=== PATIENT | female | born 1945 | race African-American/Black ===

== ENCOUNTER 2020-10-24 08:13 | Inpatient (IN) | payer MEDICARE, OTHER ==
[~2020-10-24] VITALS: Ht 152.4 cm; Wt 83.1 kg
[2020-10-24] MEDS ORDERED: PIPERACILLIN/TAZOBACTAM 3.375 GM in SODIUM CHLORIDE 0.9% 50ML 50 ML IV ONE (08:45)
[2020-10-24] MEDS ORDERED: ACETAMINOPHEN 325 MG TAB ONE (09:53)
[2020-10-24 09:57] LABS: CLARITY,URINE CLOUDY (CLEAR); COLOR,URINE YELLOW (YELLOW); LEUKOCYTE ESTERASE ,URINE LARGE (NEGATIVE); NITRITE,URINE NEGATIVE (NEGATIVE)
[2020-10-24 09:58] LABS: KETONES,URINE NEGATIVE (NEGATIVE); PROTEIN,URINE DIPSTICK >=300 (NEGATIVE); URINE UROBILINOGEN 0.2 mg/dL (0.2 - 1)
[2020-10-24] MEDS: DEXAMETHASONE SOD PHOS 10 MG/1 ML VIAL IV SCH (10:15)
[2020-10-24] MEDS: ASCORBIC ACID 500 MG TAB PO SCH ×2 (10:15→17:24)
[2020-10-24] MEDS: ZINC SULFATE 50 MG CAP PO SCH (10:15)
[2020-10-24 10:22] LABS: BACTERIA,URINE RARE /HPF; EPITHELIAL CELLS,URINE FEW /LPF; RBC,URINE 21-50 /HPF (0-5); WBC,URINE (MAN) 21-50 /HPF (0-5)
[2020-10-24 10:52] LABS: BASOPHILS % 0.2 % (0.0-1.0); HEMATOCRIT 25.8 % (34.2-44.1); LYMPHOCYTES # (AUTO) 0.5 (1.0-3.2); LYMPHOCYTES % 4.3 % (18.0-39.1); MEAN CORPUSCULAR HEMOGLOBIN 31.1 pg (28-32); MEAN CORPUSCULAR VOLUME 100.4 fL (81-99); MONOCYTES # (AUTO) 0.4 (0.2-0.8); MONOCYTES % 3.1 % (4.4-11.3); NEUTROPHILS # (AUTO) 10.6 (2.1-6.9); NEUTROPHILS % 91.8 % (38.7-80.0); PLATELET COUNT 190 x10e3/uL (140-360); RED BLOOD COUNT 2.57 x10e6/uL (3.6-5.1)
[2020-10-24] MEDS ORDERED: ACETAMINOPHEN 325 MG TAB PO ONE (11:00)
[2020-10-24 11:05] LABS: PARTIAL THROMBOPLASTIN TIME 40.3 seconds (23.8-35.5)
[2020-10-24 11:10] LABS: ALBUMIN 2.1 g/dL (3.5-5.0); ALBUMIN/GLOBULIN RATIO 0.4 (0.8-2.0); ANION GAP 20.4 mmol/L (8-16); CALCIUM 8.5 mg/dL (8.4-10.2); CREATININE, SERUM 3.69 mg/dL (0.57-1.11); MAGNESIUM 1.7 MG/DL (1.3-2.1); POTASSIUM 4.4 mmol/L (3.5-5.1)
[2020-10-24 11:17] LABS: CREATINE KINASE MB 0.9 ng/mL (0-5.0)
[2020-10-24 11:29] LABS: INR 1.23; PROTHROMBIN TIME 15.8 seconds (11.9-14.5)
[2020-10-24 15:00] VITALS: BP 111/57
[2020-10-24 16:00] VITALS: BP 111/57
[2020-10-24 16:11] VITALS: BP 111/57
[2020-10-24] MEDS ORDERED: POLYETHYLENE GLYCOL 3350 17 GM PACK PO PRN (16:30)
[2020-10-24] MEDS ORDERED: HYDRALAZINE HCL 20 MG/ML VIAL IV PRN (16:30)
[2020-10-24 17:08] LABS: CREATINE KINASE MB 1.6 ng/mL (0-5.0)
[2020-10-24] MEDS: DOCUSATE SODIUM 100 MG CAP PO SCH (17:24)
[2020-10-24] MEDS: FAMOTIDINE 20 MG/2 ML VIAL IV SCH (17:24)
[2020-10-24] MEDS ORDERED: REMDESIVIR 200MG 200 MG in SODIUM CHLORIDE 0.9% 100 ML IV ONE (18:00)
[2020-10-24] MEDS ORDERED: DEXTROSE 50% SYRINGE 50 ML IV PRN (19:45)
[2020-10-24 20:00] VITALS: BP 133/47
[2020-10-24 21:00] VITALS: BP 133/47
[2020-10-24] MEDS ORDERED: INSULIN REGULAR, HUMAN 100 UNIT/1 ML SQ SCH (21:00)
[2020-10-24] MEDS ORDERED: CEFEPIME 1 GM in SODIUM CHLORIDE 0.9% 50ML 50 ML IV SCH (21:00)
[2020-10-24] MEDS ORDERED: TRAMADOL HCL 50 MG TAB PO PRN (22:15)
[2020-10-25] VITALS (7 sets, daily range): BP systolic 108–134; BP diastolic 41–58
[2020-10-25] MEDS ORDERED: FOLIC ACID0.4 MG PO (04:31)
[2020-10-25] MEDS ORDERED: NEURONTIN300 MG PO (04:33)
[2020-10-25] MEDS ORDERED: GUAIFENESI100 MG/5 M PO (04:34)
[2020-10-25] MEDS ORDERED: METAMUCIL FIBE3.4 GM PO (05:34)
[2020-10-25] MEDS ORDERED: TRAVATAN Z5 ML OP (06:14)
[2020-10-25] MEDS ORDERED: DIPHENHYDRAMINE25 MG PO (06:14)
[2020-10-25] MEDS ORDERED: NIFEDIPINE ER30 M1 PO (06:14)
[2020-10-25] MEDS ORDERED: ATENOLOL50 MG PO (06:14)
[2020-10-25] MEDS ORDERED: ERGOCAL62.5 MCG (06:14)
[2020-10-25] MEDS ORDERED: HUMALOG MI100 UNIT/2 SQ (06:14)
[2020-10-25] MEDS ORDERED: MICARDIS40 MG PO (06:14)
[2020-10-25] MEDS ORDERED: PRECOSE50 MG PO (06:14)
[2020-10-25] MEDS ORDERED: CALCIUM CARBON500 MG PO (06:14)
[2020-10-25] MEDS ORDERED: ZOFRAN4 MG PO (06:14)
[2020-10-25] MEDS ORDERED: COLACE100 MG PO (06:14)
[2020-10-25] MEDS ORDERED: DOXYCYCLINE HY100 MG PO (06:14)
[2020-10-25] MEDS ORDERED: ATORVASTATIN CA20 MG PO (06:14)
[2020-10-25] MEDS ORDERED: BIKTARVY 50-201 EACH (06:14)
[2020-10-25] MEDS ORDERED: ACETAMINOPHEN/1 EAC1 PO (06:14)
[2020-10-25 06:51] LABS: CHOL/HDL RATIO 7.1 (3.0-3.6)
[2020-10-25 07:10] LABS: THYROID STIMULATING HORMONE 0.362 uIU/mL (0.350-4.940)
[2020-10-25 07:35] LABS: BASOPHILS % 0.1 % (0.0-1.0); HEMATOCRIT 24.5 % (34.2-44.1); HEMOGLOBIN 8.1 g/dL (12.0-16.0); LYMPHOCYTES # (AUTO) 0.9 (1.0-3.2); LYMPHOCYTES % 8.4 % (18.0-39.1); MEAN CORPUSCULAR HEMOGLOBIN 31.6 pg (28-32); MEAN CORPUSCULAR HGB CONC 33.1 g/dL (31-35); MEAN CORPUSCULAR VOLUME 95.7 fL (81-99); MONOCYTES # (AUTO) 0.4 (0.2-0.8); MONOCYTES % 3.8 % (4.4-11.3); NEUTROPHILS # (AUTO) 9.3 (2.1-6.9); NEUTROPHILS % 87.1 % (38.7-80.0); PLATELET COUNT 208 x10e3/uL (140-360); RED BLOOD COUNT 2.56 x10e6/uL (3.6-5.1); RED CELL DISTRIBUTION WIDTH 13.7 % (11.7-14.4)
[2020-10-25 08:15] LABS: ALBUMIN 1.9 g/dL (3.5-5.0); ALBUMIN/GLOBULIN RATIO 0.3 (0.8-2.0); ANION GAP 20.6 mmol/L (8-16); CALCIUM 8.3 mg/dL (8.4-10.2); CREATININE, SERUM 3.8 mg/dL (0.57-1.11); POTASSIUM 4.6 mmol/L (3.5-5.1)
[2020-10-25] MEDS: DEXAMETHASONE SOD PHOS 10 MG/1 ML VIAL IV SCH (09:18)
[2020-10-25] MEDS: HYDROCODONE/APAP 5MG-325MG TAB PO PRN ×2 (09:19→21:06)
[2020-10-25] MEDS: ZINC SULFATE 50 MG CAP PO SCH (09:19)
[2020-10-25] MEDS: ASCORBIC ACID 500 MG TAB PO SCH ×2 (09:19→16:56)
[2020-10-25] MEDS: FAMOTIDINE 20 MG/2 ML VIAL IV SCH ×2 (09:19→16:56)
[2020-10-25] MEDS: DOCUSATE SODIUM 100 MG CAP PO SCH ×2 (09:19→16:56)
[2020-10-25 09:36] LABS: CREATINE KINASE MB 2.2 ng/mL (0-5.0)
[2020-10-25] MEDS: INSULIN REGULAR, HUMAN 100 UNIT/1 ML SQ SCH ×4 (09:47→21:43)
[2020-10-25] MEDS ORDERED: INSULIN GLARGINE 100 UNITS/ML VIAL SQ STA (09:59)
[2020-10-25] MEDS ORDERED: LANTUS 3ML100 UNITS/ (10:00)
[2020-10-25] MEDS ORDERED: DIPHENHYDRAMINE HCL 25 MG CAP PO PRN (10:00)
[2020-10-25] MEDS ORDERED: LACTULOSE20 GM/30 M PO (10:02)
[2020-10-25] MEDS ORDERED: Vancomycin IV 1 GM in SODIUM CHLORIDE 0.9% 250ML 250 ML IV ONE (10:30)
[2020-10-25] MEDS ORDERED: METAMUCIL0.4 GM (11:07)
[2020-10-25] MEDS ORDERED: MAALOX MAXIMUM355 ML PO (11:09)
[2020-10-25] MEDS ORDERED: EPOETIN ALFA-EPBX 10,000 UNIT/ML VIAL SC SCH (12:00)
[2020-10-25] MEDS: ACETAMINOPHEN 325 MG TAB PO PRN (12:10)
[2020-10-25] MEDS: SODIUM BICARBONATE 650 MG TAB PO SCH (13:39)
[2020-10-25] MEDS: REMDESIVIR 100MG 100 MG in SODIUM CHLORIDE 0.9% 100 ML IV SCH (13:39)
[2020-10-25 15:05] LABS: CREATINE KINASE MB 2.6 ng/mL (0-5.0)
[2020-10-25] MEDS: ENOXAPARIN SOD INJ 40 MG/0.4 ML SYR SC SCH (16:57)
[2020-10-25] MEDS ORDERED: ACARBOSE 50 MG PO PRN (20:00)
[2020-10-25] MEDS ORDERED: MAGNESIUM/ALUMINUM/SIMETHICONE 30 ML UDC PO PRN (20:00)
[2020-10-25] MEDS: ATORVASTATIN 40 MG TAB PO SCH (21:07)
[2020-10-25] MEDS: ACETAMINOPHEN/CODEINE 300MG - 30MG TAB PO PRN (23:18)
[2020-10-26] VITALS: BP 110/46
[2020-10-26 04:00] VITALS: BP 118/47
[2020-10-26 08:00] VITALS: BP 116/56
[2020-10-26] MEDS: INS LISP PRO/LISP HUMAN 75/25 100 UNITS/ML VIAL SC SCH ×3 (09:00→17:54)
[2020-10-26] MEDS: [UNRECOGNIZED DRUG - OTHER] PO SCH (09:00)
[2020-10-26] MEDS ORDERED: CEFEPIME 1 GM in SODIUM CHLORIDE 0.9% 50ML 50 ML IV SCH (09:00)
[2020-10-26] MEDS: PSYLLIUM 6GM PACKET PO SCH (09:36)
[2020-10-26] MEDS: FAMOTIDINE 20 MG/2 ML VIAL IV SCH ×2 (09:36→16:37)
[2020-10-26] MEDS: DIPHENHYDRAMINE HCL 25 MG CAP PO SCH (09:36)
[2020-10-26] MEDS: DOCUSATE SODIUM 100 MG CAP PO SCH ×2 (09:36→09:37)
[2020-10-26] MEDS: FOLIC ACID 1 MG TAB PO SCH (09:37)
[2020-10-26] MEDS: LACTULOSE SYRUP 20 GM/30 ML UDC PO SCH ×2 (09:37→16:37)
[2020-10-26] MEDS: GABAPENTIN 300 MG CAP PO SCH (09:38)
[2020-10-26] MEDS: GUAIFENESIN 200 MG/10 ML UDC PO SCH (09:39)
[2020-10-26] MEDS: SODIUM BICARBONATE 650 MG TAB PO SCH (09:39)
[2020-10-26] MEDS: OYST-CAL-D 500MG TABLET PO SCH (09:39)
[2020-10-26] MEDS: ZINC SULFATE 50 MG CAP PO SCH (09:40)
[2020-10-26] MEDS: ASCORBIC ACID 500 MG TAB PO SCH ×2 (09:40→16:37)
[2020-10-26 10:22] LABS: CLARITY,URINE CLOUDY (CLEAR); COLOR,URINE YELLOW (YELLOW)
[2020-10-26 10:23] LABS: KETONES,URINE NEGATIVE (NEGATIVE); LEUKOCYTE ESTERASE ,URINE TRACE (NEGATIVE); NITRITE,URINE NEGATIVE (NEGATIVE); PROTEIN,URINE DIPSTICK >=300 (NEGATIVE); URINE UROBILINOGEN 0.2 mg/dL (0.2 - 1)
[2020-10-26] MEDS: INSULIN GLARGINE 100 UNITS/ML VIAL SC SCH ×2 (10:35→17:57)
[2020-10-26] MEDS: ATENOLOL 50 MG TAB PO SCH (10:37)
[2020-10-26] MEDS: TELMISARTAN 40 MG TAB PO SCH (10:37)
[2020-10-26] MEDS: NIFEDIPINE CR 30 MG TAB PO SCH (10:37)
[2020-10-26] MEDS: DEXAMETHASONE SOD PHOS 10 MG/1 ML VIAL IV SCH (10:37)
[2020-10-26] MEDS: INSULIN REGULAR, HUMAN 100 UNIT/1 ML SQ SCH ×4 (11:13→21:00)
[2020-10-26 11:18] LABS: BACTERIA,URINE MANY /HPF; EPITHELIAL CELLS,URINE FEW /LPF; RBC,URINE >50 /HPF (0-5); WBC,URINE (MAN) >50 /HPF (0-5)
[2020-10-26 11:36] LABS: BASOPHILS % 0.2 % (0.0-1.0); EOSINOPHILS % 0.2 % (0.0-6.0); HEMATOCRIT 25.9 % (34.2-44.1); HEMOGLOBIN 8.7 g/dL (12.0-16.0); LYMPHOCYTES # (AUTO) 0.7 (1.0-3.2); LYMPHOCYTES % 3.4 % (18.0-39.1); MEAN CORPUSCULAR HGB CONC 33.6 g/dL (31-35); MEAN CORPUSCULAR VOLUME 92.2 fL (81-99); MONOCYTES # (AUTO) 0.6 (0.2-0.8); MONOCYTES % 2.9 % (4.4-11.3); NEUTROPHILS # (AUTO) 17.5 (2.1-6.9); PLATELET COUNT 305 x10e3/uL (140-360); RED BLOOD COUNT 2.81 x10e6/uL (3.6-5.1); RED CELL DISTRIBUTION WIDTH 13.6 % (11.7-14.4)
[2020-10-26] MEDS: CHOLECALCIFEROL 1,000 UNIT TAB PO SCH (11:51)
[2020-10-26 12:22] LABS: FERRITIN 1269.99 ng/mL (4.63-204.00)
[2020-10-26 12:27] LABS: ALBUMIN 1.9 g/dL (3.5-5.0); ALBUMIN/GLOBULIN RATIO 0.3 (0.8-2.0); ANION GAP 19.6 mmol/L (8-16); CALCIUM 8.1 mg/dL (8.4-10.2); CREATININE, SERUM 3.35 mg/dL (0.57-1.11); POTASSIUM 3.6 mmol/L (3.5-5.1)
[2020-10-26 13:15] VITALS: BP 108/47
[2020-10-26] MEDS: LEVOFLOXACIN 500MG/D5W 100ML 100 ML IV SCH (13:32)
[2020-10-26] MEDS: HYDROMORPHONE 1MG/1ML INJ IV PRN (13:53)
[2020-10-26 16:00] VITALS: BP 182/146
[2020-10-26] MEDS: REMDESIVIR 100MG 100 MG in SODIUM CHLORIDE 0.9% 100 ML IV SCH (16:37)
[2020-10-26] MEDS: ENOXAPARIN SOD INJ 40 MG/0.4 ML SYR SC SCH (16:37)
[2020-10-26 20:00] VITALS: BP 161/116
[2020-10-26] MEDS: DEXMEDETOMIDINE 400MCG/NS100ML 100 ML IV PRN (20:25)
[2020-10-26] MEDS: ATORVASTATIN 40 MG TAB PO SCH (21:00)
[2020-10-26] MEDS: TRAVOPROST(OPTH) 2.5 ML BTL OP SCH ×2 (22:21→22:23)
[2020-10-26] MEDS ORDERED: SODIUM CHLORIDE 0.9% 250ML 250 ML ONE (23:44)
[2020-10-27] VITALS (23 sets, daily range): BP systolic 82–154; BP diastolic 40–92
[2020-10-27] MEDS ORDERED: SODIUM CHLORIDE 0.9% 1000ML 1,000 ML ONE (00:28)
[2020-10-27] MEDS: NOREPINEPHRINE 8 MG/D5W 250 ML 250 ML IV SCH (03:20)
[2020-10-27 06:57] LABS: BASOPHILS % 0.1 % (0.0-1.0); HEMOGLOBIN 7.5 g/dL (12.0-16.0); LYMPHOCYTES # (AUTO) 0.6 (1.0-3.2); LYMPHOCYTES % 3.4 % (18.0-39.1); MEAN CORPUSCULAR HEMOGLOBIN 32.2 pg (28-32); MEAN CORPUSCULAR HGB CONC 35.4 g/dL (31-35); MONOCYTES # (AUTO) 0.6 (0.2-0.8); MONOCYTES % 3.5 % (4.4-11.3); NEUTROPHILS # (AUTO) 14.6 (2.1-6.9); PLATELET COUNT 254 x10e3/uL (140-360); RED BLOOD COUNT 2.33 x10e6/uL (3.6-5.1)
[2020-10-27 07:06] LABS: ANION GAP 17.8 mmol/L (8-16); CALCIUM 7.7 mg/dL (8.4-10.2); CREATININE, SERUM 4.04 mg/dL (0.57-1.11); POTASSIUM 3.8 mmol/L (3.5-5.1)
[2020-10-27] MEDS: INS LISP PRO/LISP HUMAN 75/25 100 UNITS/ML VIAL SC SCH ×3 (07:19→16:30)
[2020-10-27] MEDS: INSULIN REGULAR, HUMAN 100 UNIT/1 ML SQ SCH ×4 (07:20→22:45)
[2020-10-27 07:27] LABS: HEMATOCRIT 21.2 % (34.2-44.1)
[2020-10-27] MEDS: GUAIFENESIN 200 MG/10 ML UDC PO SCH (09:00)
[2020-10-27] MEDS: LACTULOSE SYRUP 20 GM/30 ML UDC PO SCH ×2 (09:00→17:00)
[2020-10-27] MEDS: GABAPENTIN 300 MG CAP PO SCH (09:00)
[2020-10-27] MEDS: DIPHENHYDRAMINE HCL 25 MG CAP PO SCH (09:00)
[2020-10-27] MEDS: ASCORBIC ACID 500 MG TAB PO SCH ×2 (09:00→17:00)
[2020-10-27] MEDS: OYST-CAL-D 500MG TABLET PO SCH (09:00)
[2020-10-27] MEDS: [UNRECOGNIZED DRUG - OTHER] PO SCH (09:00)
[2020-10-27] MEDS: CHOLECALCIFEROL 1,000 UNIT TAB PO SCH (09:00)
[2020-10-27] MEDS: TELMISARTAN 40 MG TAB PO SCH (09:00)
[2020-10-27] MEDS: INSULIN GLARGINE 100 UNITS/ML VIAL SC SCH ×2 (09:00→17:00)
[2020-10-27] MEDS: NIFEDIPINE CR 30 MG TAB PO SCH (09:00)
[2020-10-27] MEDS: FOLIC ACID 1 MG TAB PO SCH (09:00)
[2020-10-27] MEDS: SODIUM BICARBONATE 650 MG TAB PO SCH (09:00)
[2020-10-27] MEDS: PSYLLIUM 6GM PACKET PO SCH (09:00)
[2020-10-27] MEDS: ATENOLOL 50 MG TAB PO SCH (09:00)
[2020-10-27] MEDS: DOCUSATE SODIUM 100 MG CAP PO SCH (09:00)
[2020-10-27] MEDS: ZINC SULFATE 50 MG CAP PO SCH (09:00)
[2020-10-27] MEDS: DEXAMETHASONE SOD PHOS 10 MG/1 ML VIAL IV SCH (10:03)
[2020-10-27] MEDS: FAMOTIDINE 20 MG/2 ML VIAL IV SCH ×2 (10:03→17:50)
[2020-10-27] MEDS: REMDESIVIR 100MG 100 MG in SODIUM CHLORIDE 0.9% 100 ML IV SCH (16:25)
[2020-10-27] MEDS: ENOXAPARIN SOD INJ 40 MG/0.4 ML SYR SC SCH (17:50)
[2020-10-27] MEDS: ATORVASTATIN 40 MG TAB PO SCH (21:00)
[2020-10-27] MEDS: TRAVOPROST(OPTH) 2.5 ML BTL OP SCH (21:00)
[2020-10-28] VITALS (25 sets, daily range): BP systolic 102–157; BP diastolic 42–88
[2020-10-28] MEDS: NOREPINEPHRINE 8 MG/D5W 250 ML 250 ML IV SCH (01:30)
[2020-10-28 05:39] LABS: BASOPHILS % 0.1 % (0.0-1.0); HEMATOCRIT 21.4 % (34.2-44.1); HEMOGLOBIN 7.6 g/dL (12.0-16.0); LYMPHOCYTES # (AUTO) 0.7 (1.0-3.2); LYMPHOCYTES % 5.9 % (18.0-39.1); MEAN CORPUSCULAR HEMOGLOBIN 32.2 pg (28-32); MEAN CORPUSCULAR HGB CONC 35.5 g/dL (31-35); MEAN CORPUSCULAR VOLUME 90.7 fL (81-99); MONOCYTES # (AUTO) 0.4 (0.2-0.8); MONOCYTES % 3.2 % (4.4-11.3); NEUTROPHILS # (AUTO) 10.1 (2.1-6.9); NEUTROPHILS % 89.9 % (38.7-80.0); PLATELET COUNT 250 x10e3/uL (140-360); RED BLOOD COUNT 2.36 x10e6/uL (3.6-5.1); RED CELL DISTRIBUTION WIDTH 14.1 % (11.7-14.4)
[2020-10-28 06:01] LABS: ALBUMIN 1.6 g/dL (3.5-5.0); ALBUMIN/GLOBULIN RATIO 0.3 (0.8-2.0); CALCIUM 7.6 mg/dL (8.4-10.2); CREATININE, SERUM 4.03 mg/dL (0.57-1.11)
[2020-10-28] MEDS: INSULIN REGULAR, HUMAN 100 UNIT/1 ML SQ SCH ×4 (07:30→20:28)
[2020-10-28] MEDS: FAMOTIDINE 20 MG/2 ML VIAL IV SCH ×2 (08:29→17:49)
[2020-10-28] MEDS: DOCUSATE SODIUM 100 MG CAP PO SCH (08:29)
[2020-10-28] MEDS: PSYLLIUM 6GM PACKET PO SCH (08:29)
[2020-10-28] MEDS: DIPHENHYDRAMINE HCL 25 MG CAP PO SCH (08:29)
[2020-10-28] MEDS: FOLIC ACID 1 MG TAB PO SCH (08:29)
[2020-10-28] MEDS: DEXAMETHASONE SOD PHOS 10 MG/1 ML VIAL IV SCH (08:29)
[2020-10-28] MEDS: LACTULOSE SYRUP 20 GM/30 ML UDC PO SCH ×2 (08:29→17:00)
[2020-10-28] MEDS: OYST-CAL-D 500MG TABLET PO SCH (08:30)
[2020-10-28] MEDS: GABAPENTIN 300 MG CAP PO SCH (08:30)
[2020-10-28] MEDS: TELMISARTAN 40 MG TAB PO SCH (08:30)
[2020-10-28] MEDS: ZINC SULFATE 50 MG CAP PO SCH (08:31)
[2020-10-28] MEDS: NIFEDIPINE CR 30 MG TAB PO SCH (08:31)
[2020-10-28] MEDS: SODIUM BICARBONATE 650 MG TAB PO SCH (08:31)
[2020-10-28] MEDS: CHOLECALCIFEROL 1,000 UNIT TAB PO SCH (08:31)
[2020-10-28] MEDS: ATENOLOL 50 MG TAB PO SCH (08:31)
[2020-10-28] MEDS: ASCORBIC ACID 500 MG TAB PO SCH ×2 (08:31→17:00)
[2020-10-28] MEDS: [UNRECOGNIZED DRUG - OTHER] PO SCH (09:00)
[2020-10-28] MEDS: ONDANSETRON HCL INJ 2MG/ML 2ML 2 MG/ML VIAL IV PRN (09:01)
[2020-10-28] MEDS: INS LISP PRO/LISP HUMAN 75/25 100 UNITS/ML VIAL SC SCH ×3 (09:04→18:31)
[2020-10-28] MEDS: INSULIN GLARGINE 100 UNITS/ML VIAL SC SCH (09:05)
[2020-10-28] MEDS: GUAIFENESIN 200 MG/10 ML UDC PO SCH (09:41)
[2020-10-28] MEDS: DEXMEDETOMIDINE 400MCG/NS100ML 100 ML IV PRN (10:31)
[2020-10-28] MEDS ORDERED: LORAZEPAM INJ 2 MG/ML VIAL ONE (11:09)
[2020-10-28] MEDS ORDERED: LORAZEPAM INJ 2 MG/ML VIAL IV STA (11:46)
[2020-10-28] MEDS: REMDESIVIR 100MG 100 MG in SODIUM CHLORIDE 0.9% 100 ML IV SCH (13:20)
[2020-10-28] MEDS: LEVOFLOXACIN 500MG/D5W 100ML 100 ML IV SCH (13:20)
[2020-10-28] MEDS ORDERED: HEPARIN SOD (PORCINE) 1000 UNIT/ML SDV ONE (16:26)
[2020-10-28] MEDS ORDERED: SODIUM CHLORIDE 0.9% 1000ML 2,000 ML ONE (16:26)
[2020-10-28] MEDS ORDERED: MANNITOL 25% 12.5GM/50ML 100 ML ONE (16:31)
[2020-10-28] MEDS ORDERED: INSULIN GLARGINE 100 UNITS/ML VIAL SC SCH (17:00)
[2020-10-28] MEDS ORDERED: SODIUM CHLORIDE 0.9% 1000ML 2,000 ML IV PRN (17:15)
[2020-10-28] MEDS ORDERED: MANNITOL 25% 12.5GM/50 ML VIAL IV PRN (17:15)
[2020-10-28] MEDS ORDERED: HEPARIN SOD (PORCINE) 1000 UNIT/ML SDV IV PRN (17:15)
[2020-10-28] MEDS: ENOXAPARIN SOD INJ 40 MG/0.4 ML SYR SC SCH (17:49)
[2020-10-28] MEDS: TRAVOPROST(OPTH) 2.5 ML BTL OP SCH (20:27)
[2020-10-28] MEDS: ATORVASTATIN 40 MG TAB PO SCH (20:27)
[2020-10-28] MEDS: ACETAMINOPHEN 325 MG TAB PO PRN (20:28)
[2020-10-29] VITALS (24 sets, daily range): BP systolic 79–179; BP diastolic 14–93
[2020-10-29] MEDS: NOREPINEPHRINE 8 MG/D5W 250 ML 250 ML IV SCH (00:07)
[2020-10-29 05:53] LABS: BASOPHILS % 0.2 % (0.0-1.0); HEMATOCRIT 23.8 % (34.2-44.1); HEMOGLOBIN 8.1 g/dL (12.0-16.0); LYMPHOCYTES # (AUTO) 0.6 (1.0-3.2); MEAN CORPUSCULAR HEMOGLOBIN 31.2 pg (28-32); MEAN CORPUSCULAR VOLUME 91.5 fL (81-99); MONOCYTES # (AUTO) 0.7 (0.2-0.8); MONOCYTES % 4.9 % (4.4-11.3); NEUTROPHILS # (AUTO) 13.4 (2.1-6.9); NEUTROPHILS % 90.2 % (38.7-80.0); PLATELET COUNT 285 x10e3/uL (140-360); RED CELL DISTRIBUTION WIDTH 14.4 % (11.7-14.4)
[2020-10-29 06:32] LABS: ALBUMIN 1.7 g/dL (3.5-5.0); ALBUMIN/GLOBULIN RATIO 0.3 (0.8-2.0); ANION GAP 17.6 mmol/L (8-16); CALCIUM 7.9 mg/dL (8.4-10.2); CREATININE, SERUM 3.55 mg/dL (0.57-1.11); POTASSIUM 3.6 mmol/L (3.5-5.1)
[2020-10-29] MEDS: INS LISP PRO/LISP HUMAN 75/25 100 UNITS/ML VIAL SC SCH ×3 (08:30→16:30)
[2020-10-29] MEDS: FOLIC ACID 1 MG TAB PO SCH (09:00)
[2020-10-29] MEDS: NIFEDIPINE CR 30 MG TAB PO SCH (09:00)
[2020-10-29] MEDS: DIPHENHYDRAMINE HCL 25 MG CAP PO SCH (09:00)
[2020-10-29] MEDS: FAMOTIDINE 20 MG/2 ML VIAL IV SCH ×2 (09:00→17:00)
[2020-10-29] MEDS: ATENOLOL 50 MG TAB PO SCH (09:00)
[2020-10-29] MEDS: SODIUM BICARBONATE 650 MG TAB PO SCH (09:00)
[2020-10-29] MEDS: [UNRECOGNIZED DRUG - OTHER] PO SCH (09:00)
[2020-10-29] MEDS: GUAIFENESIN 200 MG/10 ML UDC PO SCH (09:00)
[2020-10-29] MEDS: OYST-CAL-D 500MG TABLET PO SCH (09:00)
[2020-10-29] MEDS: ZINC SULFATE 50 MG CAP PO SCH (09:00)
[2020-10-29] MEDS: TELMISARTAN 40 MG TAB PO SCH (09:00)
[2020-10-29] MEDS: LACTULOSE SYRUP 20 GM/30 ML UDC PO SCH ×2 (09:00→17:00)
[2020-10-29] MEDS: PSYLLIUM 6GM PACKET PO SCH (09:00)
[2020-10-29] MEDS: CHOLECALCIFEROL 1,000 UNIT TAB PO SCH (09:00)
[2020-10-29] MEDS: DOCUSATE SODIUM 100 MG CAP PO SCH (09:00)
[2020-10-29] MEDS: DEXAMETHASONE SOD PHOS 10 MG/1 ML VIAL IV SCH (09:00)
[2020-10-29] MEDS: GABAPENTIN 300 MG CAP PO SCH (10:49)
[2020-10-29] MEDS: ASCORBIC ACID 500 MG TAB PO SCH ×2 (10:50→17:00)
[2020-10-29] MEDS: INSULIN REGULAR, HUMAN 100 UNIT/1 ML SQ SCH ×4 (12:10→21:00)
[2020-10-29] MEDS: INSULIN GLARGINE 100 UNITS/ML VIAL SC SCH (17:00)
[2020-10-29] MEDS: ENOXAPARIN SOD INJ 40 MG/0.4 ML SYR SC SCH (17:00)
[2020-10-29] MEDS: TRAVOPROST(OPTH) 2.5 ML BTL OP SCH (21:00)
[2020-10-29] MEDS: ATORVASTATIN 40 MG TAB PO SCH (21:40)
[2020-10-30] VITALS (25 sets, daily range): BP systolic 93–172; BP diastolic 43–125
[2020-10-30] MEDS: NOREPINEPHRINE 8 MG/D5W 250 ML 250 ML IV SCH (01:30)
[2020-10-30 04:55] LABS: BASOPHILS % 0.1 % (0.0-1.0); EOSINOPHILS % 0.1 % (0.0-6.0); HEMATOCRIT 24.4 % (34.2-44.1); HEMOGLOBIN 8.4 g/dL (12.0-16.0); LYMPHOCYTES # (AUTO) 0.9 (1.0-3.2); LYMPHOCYTES % 6.6 % (18.0-39.1); MEAN CORPUSCULAR HEMOGLOBIN 31.1 pg (28-32); MEAN CORPUSCULAR HGB CONC 34.4 g/dL (31-35); MEAN CORPUSCULAR VOLUME 90.4 fL (81-99); MONOCYTES # (AUTO) 0.9 (0.2-0.8); MONOCYTES % 6.5 % (4.4-11.3); NEUTROPHILS # (AUTO) 11.6 (2.1-6.9); NEUTROPHILS % 84.9 % (38.7-80.0); PLATELET COUNT 278 x10e3/uL (140-360); RED CELL DISTRIBUTION WIDTH 14.2 % (11.7-14.4)
[2020-10-30 05:21] LABS: ALBUMIN 1.7 g/dL (3.5-5.0); ALBUMIN/GLOBULIN RATIO 0.3 (0.8-2.0); ANION GAP 17.3 mmol/L (8-16); CALCIUM 7.9 mg/dL (8.4-10.2); CREATININE, SERUM 2.63 mg/dL (0.57-1.11); POTASSIUM 3.3 mmol/L (3.5-5.1)
[2020-10-30] MEDS: INSULIN REGULAR, HUMAN 100 UNIT/1 ML SQ SCH ×4 (07:30→21:00)
[2020-10-30] MEDS: [UNRECOGNIZED DRUG - OTHER] PO SCH (09:00)
[2020-10-30] MEDS ORDERED: POTASSIUM CHLORIDE 20MEQ/100ML 100 ML IV ONE (09:15)
[2020-10-30] MEDS: DIPHENHYDRAMINE HCL 25 MG CAP PO SCH (09:41)
[2020-10-30] MEDS: DOCUSATE SODIUM 100 MG CAP PO SCH (09:41)
[2020-10-30] MEDS: GABAPENTIN 300 MG CAP PO SCH (09:41)
[2020-10-30] MEDS: TELMISARTAN 40 MG TAB PO SCH (09:41)
[2020-10-30] MEDS: OYST-CAL-D 500MG TABLET PO SCH (09:41)
[2020-10-30] MEDS: FAMOTIDINE 20 MG/2 ML VIAL IV SCH ×2 (09:41→17:52)
[2020-10-30] MEDS: PSYLLIUM 6GM PACKET PO SCH (09:41)
[2020-10-30] MEDS: NIFEDIPINE CR 30 MG TAB PO SCH (09:41)
[2020-10-30] MEDS: LACTULOSE SYRUP 20 GM/30 ML UDC PO SCH ×2 (09:41→17:00)
[2020-10-30] MEDS: FOLIC ACID 1 MG TAB PO SCH (09:41)
[2020-10-30] MEDS: GUAIFENESIN 200 MG/10 ML UDC PO SCH (09:41)
[2020-10-30] MEDS: COLLAGENASE 5 GM TUBE TP SCH (09:42)
[2020-10-30] MEDS: ASCORBIC ACID 500 MG TAB PO SCH ×2 (09:42→17:00)
[2020-10-30] MEDS: ATENOLOL 50 MG TAB PO SCH (09:42)
[2020-10-30] MEDS: BALSAM PERU/CASTOR OIL 60 GM OINT...G. TP SCH (09:42)
[2020-10-30] MEDS: INSULIN GLARGINE 100 UNITS/ML VIAL SC SCH ×2 (09:42→17:53)
[2020-10-30] MEDS: CHOLECALCIFEROL 1,000 UNIT TAB PO SCH (09:42)
[2020-10-30] MEDS: ZINC SULFATE 50 MG CAP PO SCH (09:42)
[2020-10-30] MEDS: ACETAMINOPHEN/CODEINE 300MG - 30MG TAB PO PRN (09:43)
[2020-10-30] MEDS: HYDROCODONE/APAP 5MG-325MG TAB PO PRN (09:43)
[2020-10-30] MEDS: INS LISP PRO/LISP HUMAN 75/25 100 UNITS/ML VIAL SC SCH ×2 (11:30→17:53)
[2020-10-30] MEDS: LEVOFLOXACIN 500MG/D5W 100ML 100 ML IV SCH ×2 (12:00→14:43)
[2020-10-30] MEDS ORDERED: ALBUMIN 25% 25GM 100ML 0.25 GM/ML BTL IV STA (14:17)
[2020-10-30] MEDS: HYDROMORPHONE 1MG/1ML INJ IV PRN (14:42)
[2020-10-30] MEDS: ONDANSETRON HCL INJ 2MG/ML 2ML 2 MG/ML VIAL IV PRN (14:42)
[2020-10-30] MEDS ORDERED: ALBUMIN 25% 25GM 100ML 100 ML IV ONE (14:45)
[2020-10-30] MEDS: EPOETIN ALFA-EPBX 10,000 UNIT/ML VIAL SC SCH (17:52)
[2020-10-30] MEDS: ENOXAPARIN SOD INJ 40 MG/0.4 ML SYR SC SCH (17:52)
[2020-10-30] MEDS: ATORVASTATIN 40 MG TAB PO SCH (21:00)
[2020-10-30] MEDS: TRAVOPROST(OPTH) 2.5 ML BTL OP SCH (21:00)
[2020-10-31] VITALS (26 sets, daily range): BP systolic 82–164; BP diastolic 41–90
[2020-10-31] MEDS: NOREPINEPHRINE 8 MG/D5W 250 ML 250 ML IV SCH (01:30)
[2020-10-31] MEDS: INS LISP PRO/LISP HUMAN 75/25 100 UNITS/ML VIAL SC SCH ×3 (07:30→16:30)
[2020-10-31] MEDS: INSULIN REGULAR, HUMAN 100 UNIT/1 ML SQ SCH ×2 (07:30→11:30)
[2020-10-31] MEDS ORDERED: ROCURONIUM 1250MG/NS 250 250 ML IV PRN (07:45)
[2020-10-31] MEDS ORDERED: ALBUMIN 25% 25GM 100ML 0.25 GM/ML BTL IV ONE (08:30)
[2020-10-31] MEDS ORDERED: ATROPINE SULFATE 0.1 MG/ML 10ML SYR ONE (08:38)
[2020-10-31] MEDS ORDERED: SODIUM BICARBONATE 8.4% SYRING 100 ML ONE (08:39)
[2020-10-31] MEDS ORDERED: NOREPINEPHRINE 8 MG/D5W 250 ML 250 ML ONE (08:42)
[2020-10-31] MEDS ORDERED: EPINEPHRINE HCL SYRINGE ONE ×2 (08:48→11:54)
[2020-10-31] MEDS: PSYLLIUM 6GM PACKET PO SCH (09:00)
[2020-10-31] MEDS: INSULIN GLARGINE 100 UNITS/ML VIAL SC SCH ×2 (09:00→17:00)
[2020-10-31] MEDS: [UNRECOGNIZED DRUG - OTHER] PO SCH (09:00)
[2020-10-31] MEDS: CHOLECALCIFEROL 1,000 UNIT TAB PO SCH (09:00)
[2020-10-31] MEDS: LACTULOSE SYRUP 20 GM/30 ML UDC PO SCH ×2 (09:00→17:00)
[2020-10-31] MEDS: FAMOTIDINE 20 MG/2 ML VIAL IV SCH ×2 (09:00→17:46)
[2020-10-31] MEDS: TELMISARTAN 40 MG TAB PO SCH (09:00)
[2020-10-31] MEDS: ZINC SULFATE 50 MG CAP PO SCH (09:00)
[2020-10-31] MEDS: GUAIFENESIN 200 MG/10 ML UDC PO SCH (09:00)
[2020-10-31] MEDS: FOLIC ACID 1 MG TAB PO SCH (09:00)
[2020-10-31] MEDS: DOCUSATE SODIUM 100 MG CAP PO SCH (09:00)
[2020-10-31] MEDS: GABAPENTIN 300 MG CAP PO SCH (09:00)
[2020-10-31] MEDS: ASCORBIC ACID 500 MG TAB PO SCH ×2 (09:00→17:00)
[2020-10-31] MEDS: NIFEDIPINE CR 30 MG TAB PO SCH (09:00)
[2020-10-31] MEDS: OYST-CAL-D 500MG TABLET PO SCH (09:00)
[2020-10-31] MEDS: FENTANYL 2000MCG/NS 250 250 ML IV SCH (10:25)
[2020-10-31] MEDS: COLLAGENASE 5 GM TUBE TP SCH (10:29)
[2020-10-31] MEDS: BALSAM PERU/CASTOR OIL 60 GM OINT...G. TP SCH (10:29)
[2020-10-31 10:31] LABS: ABG HCO3 31 mmol/L (22-26); ABG PCO2 54 mmHg (35-45); ABG PH 7.37 (7.35-7.45); ABG PO2 51 mmHg (80-105); ABG TCO2 32
[2020-10-31 10:47] LABS: BASOPHILS # (AUTO) 0.1 (0.0-0.1); BASOPHILS % 0.4 % (0.0-1.0); HEMATOCRIT 26.3 % (34.2-44.1); LYMPHOCYTES # (AUTO) 0.9 (1.0-3.2); LYMPHOCYTES % 3.4 % (18.0-39.1); MEAN CORPUSCULAR HEMOGLOBIN 31.7 pg (28-32); MEAN CORPUSCULAR HGB CONC 34.2 g/dL (31-35); MEAN CORPUSCULAR VOLUME 92.6 fL (81-99); MONOCYTES # (AUTO) 1.3 (0.2-0.8); MONOCYTES % 5.1 % (4.4-11.3); NEUTROPHILS # (AUTO) 21.6 (2.1-6.9); NEUTROPHILS % 85.1 % (38.7-80.0); PLATELET COUNT 285 x10e3/uL (140-360); RED BLOOD COUNT 2.84 x10e6/uL (3.6-5.1); RED CELL DISTRIBUTION WIDTH 14.9 % (11.7-14.4)
[2020-10-31 11:09] LABS: ALBUMIN 2.3 g/dL (3.5-5.0); ALBUMIN/GLOBULIN RATIO 0.5 (0.8-2.0); ANION GAP 24.7 mmol/L (8-16); CALCIUM 7.6 mg/dL (8.4-10.2); CREATININE, SERUM 2.63 mg/dL (0.57-1.11); POTASSIUM 3.7 mmol/L (3.5-5.1)
[2020-10-31 11:42] LABS: LYMPHOCYTES % (MANUAL) 4 % (19-48); MONOCYTES % (MANUAL) 4 % (3.4-9.0); NEUTROPHILS % (MANUAL) 92 % (40-74); PLATELET ESTIMATE ADEQUATE; PLATELET MORPHOLOGY COMMENT FEW LARGE; RBC MORPHOLOGY COMMENT NORMAL
[2020-10-31] MEDS ORDERED: SODIUM BICARBONATE 8.4% INJ 50 ML SYR ONE (11:54)
[2020-10-31] MEDS ORDERED: INSULIN REGULAR, HUMAN 100 UNIT/1 ML SQ SCH (18:00)
[2020-10-31] MEDS: INSULIN LISPRO 100 UNIT/1 ML 3ML VIAL SQ SCH (18:03)
[2020-10-31] MEDS: ENOXAPARIN SOD INJ 40 MG/0.4 ML SYR SC SCH (18:05)
[2020-10-31] MEDS: ATORVASTATIN 40 MG TAB PO SCH (21:00)
[2020-10-31] MEDS: TRAVOPROST(OPTH) 2.5 ML BTL OP SCH (21:00)
[2020-10-31] MEDS: HEPARIN SOD (PORCINE) 5,000 UNIT/ML VIAL SC SCH (22:00)
[2020-11-01] VITALS (28 sets, daily range): BP systolic 86–158; BP diastolic 36–57
[2020-11-01] MEDS: NOREPINEPHRINE 8 MG/D5W 250 ML 250 ML IV SCH ×6 (00:04→23:41)
[2020-11-01] MEDS: INSULIN LISPRO 100 UNIT/1 ML 3ML VIAL SQ SCH ×5 (00:04→23:51)
[2020-11-01] MEDS: MIDAZOLAM HCL 5MG/ML 10ML VIAL 100 ML IV PRN ×3 (00:16→19:48)
[2020-11-01] MEDS ORDERED: HEPARIN SOD/SOD CHLORIDE 1,000 ML ONE (03:35)
[2020-11-01] MEDS: FENTANYL 2000MCG/NS 250 250 ML IV SCH ×2 (03:43→15:41)
[2020-11-01 06:04] LABS: BASOPHILS % 0.3 % (0.0-1.0); EOSINOPHILS # (AUTO) 0.1 (0.0-0.4); EOSINOPHILS % 0.4 % (0.0-6.0); HEMATOCRIT 23.6 % (34.2-44.1); HEMOGLOBIN 7.8 g/dL (12.0-16.0); LYMPHOCYTES # (AUTO) 1.8 (1.0-3.2); LYMPHOCYTES % 12.6 % (18.0-39.1); MEAN CORPUSCULAR HEMOGLOBIN 30.2 pg (28-32); MEAN CORPUSCULAR HGB CONC 33.1 g/dL (31-35); MEAN CORPUSCULAR VOLUME 91.5 fL (81-99); MONOCYTES # (AUTO) 0.7 (0.2-0.8); MONOCYTES % 4.7 % (4.4-11.3); NEUTROPHILS % 76.9 % (38.7-80.0); PLATELET COUNT 269 x10e3/uL (140-360); RED BLOOD COUNT 2.58 x10e6/uL (3.6-5.1); RED CELL DISTRIBUTION WIDTH 14.6 % (11.7-14.4)
[2020-11-01 06:20] LABS: ALBUMIN/GLOBULIN RATIO 0.5 (0.8-2.0); ANION GAP 18.9 mmol/L (8-16); CREATININE, SERUM 3.14 mg/dL (0.57-1.11); POTASSIUM 3.9 mmol/L (3.5-5.1)
[2020-11-01 06:28] LABS: CALCIUM 6.9 mg/dL (8.4-10.2)
[2020-11-01] MEDS: INS LISP PRO/LISP HUMAN 75/25 100 UNITS/ML VIAL SC SCH ×3 (07:30→16:02)
[2020-11-01] MEDS: [UNRECOGNIZED DRUG - OTHER] PO SCH (08:27)
[2020-11-01] MEDS: DOCUSATE SODIUM 100 MG CAP PO SCH (08:27)
[2020-11-01] MEDS: TELMISARTAN 40 MG TAB PO SCH (08:27)
[2020-11-01] MEDS: COLLAGENASE 5 GM TUBE TP SCH (08:28)
[2020-11-01] MEDS: INSULIN GLARGINE 100 UNITS/ML VIAL SC SCH ×2 (08:28→16:35)
[2020-11-01] MEDS: NIFEDIPINE CR 30 MG TAB PO SCH (08:28)
[2020-11-01] MEDS: GUAIFENESIN 200 MG/10 ML UDC PO SCH (08:28)
[2020-11-01] MEDS: BALSAM PERU/CASTOR OIL 60 GM OINT...G. TP SCH (08:28)
[2020-11-01] MEDS: PSYLLIUM 6GM PACKET PO SCH (08:29)
[2020-11-01] MEDS: LACTULOSE SYRUP 20 GM/30 ML UDC PO SCH ×2 (08:29→16:03)
[2020-11-01 08:53] LABS: ABG HCO3 28 mmol/L (22-26); ABG PCO2 40 mmHg (35-45); ABG PH 7.46 (7.35-7.45); ABG PO2 59 mmHg (80-105); ABG TCO2 29
[2020-11-01] MEDS: GABAPENTIN 300 MG CAP PO SCH (09:00)
[2020-11-01] MEDS: ASCORBIC ACID 500 MG TAB PO SCH ×2 (09:36→16:35)
[2020-11-01] MEDS: FAMOTIDINE 20 MG/2 ML VIAL IV SCH ×2 (09:36→16:35)
[2020-11-01] MEDS: FOLIC ACID 1 MG TAB PO SCH (09:36)
[2020-11-01] MEDS: OYST-CAL-D 500MG TABLET PO SCH ×3 (09:36→21:32)
[2020-11-01] MEDS: CHOLECALCIFEROL 1,000 UNIT TAB PO SCH (09:37)
[2020-11-01] MEDS: ZINC SULFATE 50 MG CAP PO SCH (09:37)
[2020-11-01] MEDS: HEPARIN SOD (PORCINE) 5,000 UNIT/ML VIAL SC SCH ×2 (09:38→21:31)
[2020-11-01] MEDS: MEROPENEM 500 MG in SODIUM CHLORIDE 0.9% 50ML 50 ML IV SCH ×2 (12:23→21:48)
[2020-11-01] MEDS ORDERED: CALCIUM CHLORIDE 13.6 MEQ in SODIUM CHLORIDE 0.9% 100 ML 100 ML IV ONE (14:00)
[2020-11-01] MEDS: TRAVOPROST(OPTH) 2.5 ML BTL OP SCH (21:00)
[2020-11-01] MEDS: ATORVASTATIN 40 MG TAB PO SCH (21:27)
[2020-11-02] VITALS (26 sets, daily range): BP systolic 115–179; BP diastolic 33–77
[2020-11-02] MEDS: FENTANYL 2000MCG/NS 250 250 ML IV SCH ×3 (01:30→22:08)
[2020-11-02] MEDS: MIDAZOLAM HCL 5MG/ML 10ML VIAL 100 ML IV PRN ×4 (01:31→20:41)
[2020-11-02] MEDS: OYST-CAL-D 500MG TABLET PO SCH ×3 (05:35→20:44)
[2020-11-02] MEDS: INSULIN LISPRO 100 UNIT/1 ML 3ML VIAL SQ SCH ×3 (05:51→18:06)
[2020-11-02 06:23] LABS: BASOPHILS % 0.2 % (0.0-1.0); EOSINOPHILS # (AUTO) 0.2 (0.0-0.4); EOSINOPHILS % 0.9 % (0.0-6.0); LYMPHOCYTES # (AUTO) 1.3 (1.0-3.2); LYMPHOCYTES % 7.6 % (18.0-39.1); MEAN CORPUSCULAR HEMOGLOBIN 30.4 pg (28-32); MEAN CORPUSCULAR HGB CONC 33.3 g/dL (31-35); MEAN CORPUSCULAR VOLUME 91.3 fL (81-99); MONOCYTES # (AUTO) 0.6 (0.2-0.8); MONOCYTES % 3.8 % (4.4-11.3); NEUTROPHILS % 84.4 % (38.7-80.0); PLATELET COUNT 211 x10e3/uL (140-360); RED CELL DISTRIBUTION WIDTH 14.5 % (11.7-14.4)
[2020-11-02] MEDS: NOREPINEPHRINE 8 MG/D5W 250 ML 250 ML IV SCH ×7 (06:49→23:20)
[2020-11-02 06:50] LABS: ALBUMIN 1.7 g/dL (3.5-5.0); ALBUMIN/GLOBULIN RATIO 0.4 (0.8-2.0); ANION GAP 16.8 mmol/L (8-16); CALCIUM 7.4 mg/dL (8.4-10.2); CREATININE, SERUM 2.95 mg/dL (0.57-1.11); POTASSIUM 3.8 mmol/L (3.5-5.1)
[2020-11-02 08:31] LABS: ABG HCO3 25 mmol/L (22-26); ABG PCO2 36 mmHg (35-45); ABG PH 7.46 (7.35-7.45); ABG PO2 49 mmHg (80-105); ABG TCO2 26
[2020-11-02] MEDS ORDERED: ACETAMINOPHEN 325 MG TAB PO STA (08:41)
[2020-11-02] MEDS ORDERED: SODIUM CHLORIDE 0.9% 250ML 250 ML IV ONE (08:45)
[2020-11-02] MEDS: PSYLLIUM 6GM PACKET PO SCH (09:00)
[2020-11-02] MEDS: [UNRECOGNIZED DRUG - OTHER] PO SCH (09:00)
[2020-11-02] MEDS: NIFEDIPINE CR 30 MG TAB PO SCH (09:00)
[2020-11-02] MEDS: DOCUSATE SODIUM 100 MG CAP PO SCH (09:00)
[2020-11-02] MEDS: INS LISP PRO/LISP HUMAN 75/25 100 UNITS/ML VIAL SC SCH ×3 (10:21→18:05)
[2020-11-02] MEDS: FAMOTIDINE 20 MG/2 ML VIAL IV SCH ×2 (10:23→16:17)
[2020-11-02] MEDS: FOLIC ACID 1 MG TAB PO SCH (10:23)
[2020-11-02] MEDS: ASCORBIC ACID 500 MG TAB PO SCH ×2 (10:23→16:17)
[2020-11-02] MEDS: LACTULOSE SYRUP 20 GM/30 ML UDC PO SCH ×2 (10:23→16:17)
[2020-11-02] MEDS: CHOLECALCIFEROL 1,000 UNIT TAB PO SCH (10:23)
[2020-11-02] MEDS: ZINC SULFATE 50 MG CAP PO SCH (10:24)
[2020-11-02] MEDS: INSULIN GLARGINE 100 UNITS/ML VIAL SC SCH ×2 (10:26→18:06)
[2020-11-02] MEDS: BALSAM PERU/CASTOR OIL 60 GM OINT...G. TP SCH (10:26)
[2020-11-02] MEDS: MEROPENEM 500 MG in SODIUM CHLORIDE 0.9% 50ML 50 ML IV SCH ×2 (10:28→22:08)
[2020-11-02] MEDS: COLLAGENASE 5 GM TUBE TP SCH (10:40)
[2020-11-02] MEDS: HEPARIN SOD (PORCINE) 5,000 UNIT/ML VIAL SC SCH ×2 (10:41→20:44)
[2020-11-02] MEDS ORDERED: FUROSEMIDE INJ 10 MG/ML 4 ML VIAL IV ONE (15:45)
[2020-11-02] MEDS: EPOETIN ALFA-EPBX 10,000 UNIT/ML VIAL SC SCH (17:00)
[2020-11-02] MEDS: TRAVOPROST(OPTH) 2.5 ML BTL OP SCH (20:28)
[2020-11-02] MEDS: ATORVASTATIN 40 MG TAB PO SCH (20:42)
[2020-11-02 23:51] LABS: HEMATOCRIT 26.5 % (34.2-44.1); HEMOGLOBIN 8.7 g/dL (12.0-16.0)
[2020-11-03] VITALS (26 sets, daily range): BP systolic 105–159; BP diastolic 35–53
[2020-11-03] MEDS: INSULIN LISPRO 100 UNIT/1 ML 3ML VIAL SQ SCH ×5 (00:01→23:53)
[2020-11-03] MEDS: NOREPINEPHRINE 8 MG/D5W 250 ML 250 ML IV SCH ×6 (01:31→23:38)
[2020-11-03] MEDS: MIDAZOLAM HCL 5MG/ML 10ML VIAL 100 ML IV PRN ×4 (03:26→23:32)
[2020-11-03] MEDS: OYST-CAL-D 500MG TABLET PO SCH ×3 (05:32→21:24)
[2020-11-03 06:49] LABS: BASOPHILS % 0.2 % (0.0-1.0); EOSINOPHILS # (AUTO) 0.2 (0.0-0.4); EOSINOPHILS % 0.8 % (0.0-6.0); HEMATOCRIT 26.8 % (34.2-44.1); HEMOGLOBIN 8.7 g/dL (12.0-16.0); LYMPHOCYTES % 5.3 % (18.0-39.1); MEAN CORPUSCULAR HEMOGLOBIN 30.5 pg (28-32); MEAN CORPUSCULAR HGB CONC 32.5 g/dL (31-35); MONOCYTES # (AUTO) 0.8 (0.2-0.8); NEUTROPHILS % 87.5 % (38.7-80.0); PLATELET COUNT 200 x10e3/uL (140-360); RED BLOOD COUNT 2.85 x10e6/uL (3.6-5.1); RED CELL DISTRIBUTION WIDTH 14.8 % (11.7-14.4)
[2020-11-03 07:14] LABS: ALBUMIN 1.5 g/dL (3.5-5.0); ALBUMIN/GLOBULIN RATIO 0.3 (0.8-2.0); ANION GAP 16.7 mmol/L (8-16); CREATININE, SERUM 2.67 mg/dL (0.57-1.11); POTASSIUM 3.7 mmol/L (3.5-5.1)
[2020-11-03] MEDS: INS LISP PRO/LISP HUMAN 75/25 100 UNITS/ML VIAL SC SCH ×2 (07:30→11:30)
[2020-11-03 07:55] LABS: ABG PH 7.38 (7.35-7.45)
[2020-11-03 07:56] LABS: ABG HCO3 27 mmol/L (22-26); ABG PCO2 47 mmHg (35-45); ABG PO2 61 mmHg (80-105); ABG TCO2 29
[2020-11-03] MEDS: NIFEDIPINE CR 30 MG TAB PO SCH (09:00)
[2020-11-03] MEDS: [UNRECOGNIZED DRUG - OTHER] PO SCH (09:00)
[2020-11-03] MEDS: DOCUSATE SODIUM 100 MG CAP PO SCH (09:00)
[2020-11-03] MEDS: LACTULOSE SYRUP 20 GM/30 ML UDC PO SCH ×2 (09:00→16:59)
[2020-11-03] MEDS: FENTANYL 2000MCG/NS 250 250 ML IV SCH ×2 (09:05→16:17)
[2020-11-03] MEDS: HEPARIN SOD (PORCINE) 5,000 UNIT/ML VIAL SC SCH ×2 (09:12→21:23)
[2020-11-03] MEDS: FOLIC ACID 1 MG TAB PO SCH (09:15)
[2020-11-03] MEDS: ZINC SULFATE 50 MG CAP PO SCH (09:17)
[2020-11-03] MEDS: ASCORBIC ACID 500 MG TAB PO SCH ×2 (09:17→16:59)
[2020-11-03] MEDS: CHOLECALCIFEROL 1,000 UNIT TAB PO SCH (09:17)
[2020-11-03] MEDS: BALSAM PERU/CASTOR OIL 60 GM OINT...G. TP SCH (09:17)
[2020-11-03] MEDS: COLLAGENASE 5 GM TUBE TP SCH (09:17)
[2020-11-03] MEDS: FAMOTIDINE 20 MG/2 ML VIAL IV SCH ×2 (09:30→16:59)
[2020-11-03] MEDS: INSULIN GLARGINE 100 UNITS/ML VIAL SC SCH ×2 (09:32→17:07)
[2020-11-03] MEDS: MEROPENEM 500 MG in SODIUM CHLORIDE 0.9% 50ML 50 ML IV SCH ×2 (11:24→22:10)
[2020-11-03] MEDS: PSYLLIUM 6GM PACKET PO SCH (12:57)
[2020-11-03] MEDS: TRAVOPROST(OPTH) 2.5 ML BTL OP SCH (21:00)
[2020-11-03] MEDS: ATORVASTATIN 40 MG TAB PO SCH (21:00)
[2020-11-03] MEDS ORDERED: METOCLOPRAMIDE HCL 10 MG/2ML VIAL IV SCH (22:00)
[2020-11-04] VITALS: BP 131/44
[2020-11-04] MEDS ORDERED: VASOPRESSIN INJ 20 UNIT/ML VIAL ONE ×2 (00:30→00:32)
[2020-11-04] MEDS ORDERED: DEXTROSE 5% 50ML 50 ML IV ONE (00:31)
[2020-11-04] MEDS ORDERED: VECURONIUM BROMIDE FOR INJ 20 MG VIAL ONE (00:43)
[2020-11-04] MEDS ORDERED: PHENYLEPHRINE HCL IN 0.9% NACL 250 ML IV ONE (00:55)
[2020-11-04 01:00] VITALS: BP 50/28
[2020-11-04 01:03] LABS: ABG PH 7.19 (7.35-7.45)
[2020-11-04 01:04] LABS: ABG HCO3 31 mmol/L (22-26); ABG PCO2 80 mmHg (35-45); ABG PO2 27 mmHg (80-105); ABG TCO2 34
[2020-11-04] MEDS ORDERED: SODIUM BICARBONATE 8.4% SYRING 100 ML ONE (01:28)
[2020-11-04] MEDS ORDERED: MIDAZOLAM HCL 2 MG/2 ML VIAL INJ ONE (10:07)
== END 2020-11-04 10:08 | disposition expired | DRG 208 ==
LOC: ER 08:16 → ERHOLD 11:32 → IMCU 14:08 → ICU 10-27 02:38 → COVIDICU 10-31 21:45
PROVIDERS: ADMIT Internal Medicine; ATTEND Internal Medicine
PROC: 3E0333Z Introduction of Anti-inflammatory into Peripheral Vein, Percutaneous Approach (ICD-10-PCS; 2020-10-24)
PROC: XW033E5 Introduction of Remdesivir Anti-infective into Peripheral Vein, Percutaneous Approach, New Technology Group 5 (ICD-10-PCS; 2020-10-24)
PROC: 3E043XZ Introduction of Vasopressor into Central Vein, Percutaneous Approach (ICD-10-PCS; 2020-10-27)
PROC: 02HV33Z Insertion of Infusion Device into Superior Vena Cava, Percutaneous Approach (ICD-10-PCS; 2020-10-28)
PROC: 5A1D70Z Performance of Urinary Filtration, Intermittent, Less than 6 Hours Per Day (ICD-10-PCS; 2020-10-29)
PROC: 0BH17EZ Insertion of Endotracheal Airway into Trachea, Via Natural or Artificial Opening (ICD-10-PCS; principal; 2020-10-31)
PROC: 5A1945Z Respiratory Ventilation, 24-96 Consecutive Hours (ICD-10-PCS; 2020-10-31)
PROC: 5A12012 Performance of Cardiac Output, Single, Manual (ICD-10-PCS; 2020-10-31)
PROC: 03HC33Z Insertion of Infusion Device into Left Radial Artery, Percutaneous Approach (ICD-10-PCS; 2020-11-01)
PROC: 02HV33Z Insertion of Infusion Device into Superior Vena Cava, Percutaneous Approach (ICD-10-PCS; 2020-11-01)
PROC: B548ZZA Ultrasonography of Superior Vena Cava, Guidance (ICD-10-PCS; 2020-11-01)
PROC: 30243N1 Transfusion of Nonautologous Red Blood Cells into Central Vein, Percutaneous Approach (ICD-10-PCS; 2020-11-02)
DX: U07.1 COVID-19 (principal); L89.153 Pressure ulcer of sacral region, stage 3; N18.6 End stage renal disease; J12.82 Pneumonia due to coronavirus disease 2019; J96.01 Acute respiratory failure with hypoxia; G93.41 Metabolic encephalopathy; I21.11 ST elevation (STEMI) myocardial infarction involving right coronary artery; J96.02 Acute respiratory failure with hypercapnia; I12.0 Hypertensive chronic kidney disease with stage 5 chronic kidney disease or end stage renal disease; N39.0 Urinary tract infection, site not specified; E87.2 Acidosis; N17.9 Acute kidney failure, unspecified; E87.1 Hypo-osmolality and hyponatremia; E11.22 Type 2 diabetes mellitus with diabetic chronic kidney disease; K21.9 Gastro-esophageal reflux disease without esophagitis; E78.5 Hyperlipidemia, unspecified; Z88.1 Allergy status to other antibiotic agents; Z99.2 Dependence on renal dialysis; Z87.440 Personal history of urinary (tract) infections; Z88.5 Allergy status to narcotic agent; Z88.2 Allergy status to sulfonamides; Z88.8 Allergy status to other drugs, medicaments and biological substances; Z84.1 Family history of disorders of kidney and ureter; E11.65 Type 2 diabetes mellitus with hyperglycemia; Z79.4 Long term (current) use of insulin; D63.1 Anemia in chronic kidney disease; E11.649 Type 2 diabetes mellitus with hypoglycemia without coma; E87.6 Hypokalemia; B96.89 Other specified bacterial agents as the cause of diseases classified elsewhere; E83.51 Hypocalcemia; Z21 Asymptomatic human immunodeficiency virus [HIV] infection status
CPT/HCPCS: 36415; 36555; 36600; 51700; 71045; 74018; 80048; 80053; 80061; 81001; 82550; 82553; 82728; 82805; 82948; 83036; 83540; 83735; 83880; 84100; 84443; 84466; 84484; 85014; 85018; 85025; 85610; 85730; 86705; 86706; 86850; 86900; 86920; 87040; 87070; 87086; 87186; 87205; 87340; 92950; 93005; 93306; 94002; 94003; 97139; 99251; 99284; J0171; J0360; J0456; J1100; J1170; J1644; J1650; J1815; J1817; J1940; J1956; J2060; J2150; J2185; J2250; J2405; J2543; J2765; J3370; J3480; J7030; J7050; J7799; P9016; P9047; U0002